=== PATIENT | male | born 1980 | race Hispanic/Latino ===

== ENCOUNTER 2021-11-20 18:40 | Inpatient (IN) | payer MEDICARE, SELFPAY ==
[2021-11-20] MEDS ORDERED: Senokot S 8.6-50 MG TAB PO PRN (20:06)
[2021-11-20] MEDS ORDERED: Ondansetron ODT 4 MG TAB PO PRN (20:06)
[2021-11-20] MEDS ORDERED: Dextrose 50% Abboject 50 ML SYRINGE SLOW IVP PRN (20:06)
[2021-11-20] MEDS ORDERED: Bisacodyl 5 MG TAB PO PRN (20:06)
[2021-11-20] MEDS ORDERED: Lorazepam 1 MG TAB PO PRN (20:29)
[2021-11-20 21:01] LABS: SARS-CoV-2 NAA Rapid Test Not Detected (NotDetected)
[2021-11-20] MEDS: Valproate Sodium 250 mg/5 ml UD Cup PO SCH (21:40)
[2021-11-20] MEDS: Famotidine 20 MG TAB PO SCH (21:40)
[2021-11-20] MEDS: CLORAZEPATE DIPOTASSIUM 7.5 MG PO SCH (21:41)
[2021-11-21 08:40] LABS: #Monocytes 0.5 thou/uL (0.11-0.59); #Neutrophils 3.6 thou/uL (1.40-6.50); %Basophils 0.8 % (0.0-1.0); %Eosinophils 0.2 % (0.0-10.0); %Lymphocytes 31.8 % (21.0-51.0); %Monocytes 8.7 % (0.0-10.0); %Neutrophils 58.5 % (42.0-75.0); Hemoglobin 10.3 g/dL (14.0-18.0); Mean Corpuscular HGB CONC 30.7 g/dL (32.0-36.0); Mean Corpuscular Hemoglobin 30.5 pg (27.0-31.0); Mean Corpuscular Volume 99.2 fL (78.0-98.0); Mean Platelet Volume 5.8 fL (7.4-10.4); Platelet Count 152 thou/uL (130-400); RBC Distribution Width 14.4 % (11.5-14.5); White Blood Cell (WBC) Count 6.2 thou/uL (4.8-10.8)
[2021-11-21 08:45] LABS: ALT (SGPT) 14 U/L (8-55); AST (SGOT) 14 U/L (5-34); Albumin 2.8 g/dL (3.5-5.0); Alkaline Phosphatase 107 U/L (40-110); Anion Gap 14 mmol/L (10-20); BUN (Urea Nitrogen) 27 mg/dL (8.9-20.6); Bilirubin, Total 0.3 mg/dL (0.2-1.2); Calc. Creatinine Clearance 80 mL/min (70-130); Carbon Dioxide 29 mmol/L (22-29); Chloride 105 mmol/L (98-107); Glucose 107 mg/dL (70-105); Potassium 4.2 mmol/L (3.5-5.1); Protein, Total 4.8 g/dL (6.0-8.3); Sodium 144 mmol/L (136-145)
[2021-11-21] MEDS ORDERED: Enoxaparin Sodium 40 MG/0.4 ML SYRINGE SC SCH (09:00)
[2021-11-21 13:29] LABS: #Basophils 0.1 thou/uL (0.0-0.2); #Monocytes 0.7 thou/uL (0.11-0.59); #Neutrophils 5.4 thou/uL (1.40-6.50); %Basophils 0.7 % (0.0-1.0); %Eosinophils 0.2 % (0.0-10.0); %Lymphocytes 32.7 % (21.0-51.0); %Monocytes 7.8 % (0.0-10.0); %Neutrophils 58.6 % (42.0-75.0); Hemoglobin 11.6 g/dL (14.0-18.0); Mean Corpuscular HGB CONC 29.8 g/dL (32.0-36.0); Mean Corpuscular Hemoglobin 30.2 pg (27.0-31.0); Mean Platelet Volume 6.3 fL (7.4-10.4); Platelet Count 196 thou/uL (130-400); RBC Distribution Width 14.9 % (11.5-14.5); Red Blood Cell (RBC) Count 3.84 mill/uL (4.70-6.10); White Blood Cell (WBC) Count 9.2 thou/uL (4.8-10.8)
[2021-11-21] MEDS ORDERED: Lorazepam 2 MG/ML VIAL SLOW IVP PRN (13:49)
[2021-11-21] MEDS: Famotidine 20 MG TAB PO SCH ×2 (14:16→21:05)
[2021-11-21] MEDS: Valproate Sodium 250 mg/5 ml UD Cup PO SCH ×3 (14:17→21:05)
[2021-11-21] MEDS: CLORAZEPATE DIPOTASSIUM 7.5 MG PO SCH ×3 (14:17→21:08)
[2021-11-21] MEDS: Glimepiride 2 MG TAB PO SCH (14:38)
[2021-11-21] MEDS: Cholecalciferol 1,000 UNITS (25 MCG) TAB PO SCH (14:39)
[2021-11-21] MEDS: Dextrose 5% in Water 1,000 ML IV SCH (15:00)
[2021-11-21] MEDS: Acetaminophen 500 MG TAB PO PRN (18:49)
[2021-11-22] MEDS: Dextrose 5% in Water 1,000 ML IV SCH (03:20)
[2021-11-22] MEDS: Glimepiride 2 MG TAB PO SCH (09:56)
[2021-11-22] MEDS: Famotidine 20 MG TAB PO SCH ×3 (10:07→20:48)
[2021-11-22] MEDS: Cholecalciferol 1,000 UNITS (25 MCG) TAB PO SCH ×2 (10:07→10:16)
[2021-11-22] MEDS: Acetaminophen 500 MG TAB PO PRN (10:13)
[2021-11-22] MEDS: Valproate Sodium 250 mg/5 ml UD Cup PO SCH ×3 (10:16→20:47)
[2021-11-22] MEDS: CLORAZEPATE DIPOTASSIUM 7.5 MG PO SCH ×3 (10:16→20:46)
[2021-11-23] MEDS: Glimepiride 2 MG TAB PO SCH (07:31)
[2021-11-23] MEDS: Cholecalciferol 1,000 UNITS (25 MCG) TAB PO SCH (08:56)
[2021-11-23] MEDS: Famotidine 20 MG TAB PO SCH ×2 (08:56→21:16)
[2021-11-23] MEDS: Valproate Sodium 250 mg/5 ml UD Cup PO SCH ×3 (08:57→21:13)
[2021-11-23] MEDS: CLORAZEPATE DIPOTASSIUM 7.5 MG PO SCH ×3 (09:04→21:09)
[2021-11-23] MEDS: Acetaminophen 500 MG TAB PO PRN (10:06)
[2021-11-24] MEDS: Glimepiride 2 MG TAB PO SCH (07:20)
[2021-11-24] MEDS: Acetaminophen 500 MG TAB PO PRN (08:40)
[2021-11-24] MEDS: Famotidine 20 MG TAB PO SCH ×2 (08:42→20:20)
[2021-11-24] MEDS: Cholecalciferol 1,000 UNITS (25 MCG) TAB PO SCH (08:42)
[2021-11-24] MEDS: Valproate Sodium 250 mg/5 ml UD Cup PO SCH ×3 (08:44→20:19)
[2021-11-24] MEDS: CLORAZEPATE DIPOTASSIUM 7.5 MG PO SCH ×3 (08:45→20:20)
[2021-11-24 20:02] VITALS: BMI 23.8
[2021-11-25] MEDS: Acetaminophen 500 MG TAB PO PRN (02:16)
[2021-11-25] MEDS: Glimepiride 2 MG TAB PO SCH (07:54)
[2021-11-25] MEDS: Cholecalciferol 1,000 UNITS (25 MCG) TAB PO SCH (07:56)
[2021-11-25] MEDS: Famotidine 20 MG TAB PO SCH ×2 (07:56→20:52)
[2021-11-25] MEDS: CLORAZEPATE DIPOTASSIUM 7.5 MG PO SCH ×3 (08:03→20:53)
[2021-11-25] MEDS: Valproate Sodium 250 mg/5 ml UD Cup PO SCH ×3 (09:02→20:52)
[2021-11-25] MEDS ORDERED: Fluticasone Propionate Nasal Spray 16 gm Bottle NASAL SCH (09:30)
[2021-11-26] MEDS: Glimepiride 2 MG TAB PO SCH (08:12)
[2021-11-26] MEDS: Famotidine 20 MG TAB PO SCH ×2 (08:15→20:29)
[2021-11-26] MEDS: Fluticasone Propionate Nasal Spray 16 gm Bottle NASAL SCH (08:24)
[2021-11-26] MEDS: CLORAZEPATE DIPOTASSIUM 7.5 MG PO SCH ×3 (08:24→20:28)
[2021-11-26] MEDS: Acetaminophen 500 MG TAB PO PRN (08:31)
[2021-11-26] MEDS: Valproate Sodium 250 mg/5 ml UD Cup PO SCH ×4 (09:30→20:30)
[2021-11-27 06:20] LABS: Anion Gap 13 mmol/L (10-20); BUN (Urea Nitrogen) 24 mg/dL (8.9-20.6); Calc. Creatinine Clearance 68 mL/min (70-130); Calcium 8.2 mg/dL (7.8-10.44); Carbon Dioxide 29 mmol/L (22-29); Chloride 106 mmol/L (98-107); Glucose 116 mg/dL (70-105); Sodium 144 mmol/L (136-145)
[2021-11-27 06:28] LABS: #Basophils 0.1 thou/uL (0.0-0.2); #Lymphocytes 2.2 thou/uL (1.20-3.40); #Monocytes 0.3 thou/uL (0.11-0.59); #Neutrophils 4.8 thou/uL (1.40-6.50); %Basophils 0.6 % (0.0-1.0); %Eosinophils 0.3 % (0.0-10.0); %Lymphocytes 29.1 % (21.0-51.0); %Monocytes 4.2 % (0.0-10.0); %Neutrophils 65.8 % (42.0-75.0); Hemoglobin 9.9 g/dL (14.0-18.0); Mean Corpuscular Hemoglobin 30.3 pg (27.0-31.0); Mean Corpuscular Volume 97.7 fL (78.0-98.0); Mean Platelet Volume 6.7 fL (7.4-10.4); Platelet Count 66 thou/uL (130-400); RBC Distribution Width 13.8 % (11.5-14.5); Red Blood Cell (RBC) Count 3.26 mill/uL (4.70-6.10); White Blood Cell (WBC) Count 7.4 thou/uL (4.8-10.8)
[2021-11-27] MEDS: Acetaminophen 500 MG TAB PO PRN (07:18)
[2021-11-27] MEDS: Glimepiride 2 MG TAB PO SCH (07:19)
[2021-11-27] MEDS: Fluticasone Propionate Nasal Spray 16 gm Bottle NASAL SCH (09:21)
[2021-11-27] MEDS: Famotidine 20 MG TAB PO SCH ×2 (09:21→21:15)
[2021-11-27] MEDS: Valproate Sodium 250 mg/5 ml UD Cup PO SCH ×3 (09:22→21:14)
[2021-11-27] MEDS: CLORAZEPATE DIPOTASSIUM 7.5 MG PO SCH ×3 (09:22→21:16)
[2021-11-27] MEDS: Cholecalciferol 1,000 UNITS (25 MCG) TAB PO SCH (09:22)
[2021-11-28 06:28] LABS: #Basophils 0.1 thou/uL (0.0-0.2); #Lymphocytes 1.9 thou/uL (1.20-3.40); #Monocytes 0.2 thou/uL (0.11-0.59); #Neutrophils 1.9 thou/uL (1.40-6.50); %Basophils 1.5 % (0.0-1.0); %Eosinophils 0.4 % (0.0-10.0); %Lymphocytes 46.5 % (21.0-51.0); %Monocytes 4.3 % (0.0-10.0); %Neutrophils 47.3 % (42.0-75.0); Hemoglobin 8.5 g/dL (14.0-18.0); Mean Corpuscular HGB CONC 30.6 g/dL (32.0-36.0); Mean Corpuscular Hemoglobin 30.2 pg (27.0-31.0); Mean Corpuscular Volume 98.8 fL (78.0-98.0); Mean Platelet Volume 6.4 fL (7.4-10.4); Platelet Count 59 thou/uL (130-400); Red Blood Cell (RBC) Count 2.82 mill/uL (4.70-6.10)
[2021-11-28] MEDS: Acetaminophen 500 MG TAB PO PRN (06:43)
[2021-11-28] MEDS: Glimepiride 2 MG TAB PO SCH (09:59)
[2021-11-28] MEDS: Famotidine 20 MG TAB PO SCH ×2 (09:59→20:27)
[2021-11-28] MEDS: Cholecalciferol 1,000 UNITS (25 MCG) TAB PO SCH (10:00)
[2021-11-28] MEDS: Fluticasone Propionate Nasal Spray 16 gm Bottle NASAL SCH (10:01)
[2021-11-28] MEDS: Valproate Sodium 250 mg/5 ml UD Cup PO SCH ×3 (10:01→20:27)
[2021-11-28] MEDS: CLORAZEPATE DIPOTASSIUM 7.5 MG PO SCH ×3 (10:02→20:27)
[2021-11-29] MEDS: Acetaminophen 500 MG TAB PO PRN (01:51)
[2021-11-29 06:19] LABS: #Monocytes 0.2 thou/uL (0.11-0.59); #Neutrophils 1.3 thou/uL (1.40-6.50); %Basophils 1.3 % (0.0-1.0); %Eosinophils 0.2 % (0.0-10.0); %Lymphocytes 56.4 % (21.0-51.0); %Monocytes 4.7 % (0.0-10.0); %Neutrophils 37.4 % (42.0-75.0); Hemoglobin 9.1 g/dL (14.0-18.0); Mean Corpuscular HGB CONC 31.2 g/dL (32.0-36.0); Mean Corpuscular Hemoglobin 30.5 pg (27.0-31.0); Mean Corpuscular Volume 97.6 fL (78.0-98.0); Mean Platelet Volume 6.2 fL (7.4-10.4); Platelet Count 61 thou/uL (130-400); RBC Distribution Width 13.9 % (11.5-14.5); Red Blood Cell (RBC) Count 2.98 mill/uL (4.70-6.10); White Blood Cell (WBC) Count 3.5 thou/uL (4.8-10.8)
[2021-11-29] MEDS: Valproate Sodium 250 mg/5 ml UD Cup PO SCH ×3 (08:22→21:19)
[2021-11-29] MEDS: Famotidine 20 MG TAB PO SCH ×2 (08:22→21:19)
[2021-11-29] MEDS: Fluticasone Propionate Nasal Spray 16 gm Bottle NASAL SCH (08:22)
[2021-11-29] MEDS: Cholecalciferol 1,000 UNITS (25 MCG) TAB PO SCH (08:23)
[2021-11-29] MEDS: Glimepiride 2 MG TAB PO SCH (08:23)
[2021-11-29] MEDS: CLORAZEPATE DIPOTASSIUM 7.5 MG PO SCH ×3 (08:23→21:24)
[2021-11-30 00:03] VITALS: TEMP 98.2
[2021-11-30 06:18] LABS: Anion Gap 12 mmol/L (10-20); BUN (Urea Nitrogen) 23 mg/dL (8.9-20.6); Calc. Creatinine Clearance 82 mL/min (70-130); Calcium 7.7 mg/dL (7.8-10.44); Carbon Dioxide 28 mmol/L (22-29); Chloride 108 mmol/L (98-107); Estimated GFR 96; Glucose 96 mg/dL (70-105); Sodium 144 mmol/L (136-145)
[2021-11-30 06:21] LABS: #Lymphocytes 1.8 thou/uL (1.20-3.40); #Monocytes 0.3 thou/uL (0.11-0.59); #Neutrophils 1.9 thou/uL (1.40-6.50); %Basophils 1.1 % (0.0-1.0); %Eosinophils 0.1 % (0.0-10.0); %Lymphocytes 45.3 % (21.0-51.0); %Monocytes 6.9 % (0.0-10.0); %Neutrophils 46.6 % (42.0-75.0); Hemoglobin 9.1 g/dL (14.0-18.0); Mean Corpuscular HGB CONC 30.4 g/dL (32.0-36.0); Mean Corpuscular Hemoglobin 29.6 pg (27.0-31.0); Mean Corpuscular Volume 97.5 fL (78.0-98.0); Platelet Count 71 thou/uL (130-400); Red Blood Cell (RBC) Count 3.07 mill/uL (4.70-6.10)
[2021-11-30] MEDS: Glimepiride 2 MG TAB PO SCH (07:38)
[2021-11-30] MEDS: Famotidine 20 MG TAB PO SCH (09:50)
[2021-11-30] MEDS: Acetaminophen 500 MG TAB PO PRN (09:52)
[2021-11-30] MEDS: Cholecalciferol 1,000 UNITS (25 MCG) TAB PO SCH (09:52)
[2021-11-30] MEDS: Valproate Sodium 250 mg/5 ml UD Cup PO SCH ×2 (09:53→15:38)
[2021-11-30] MEDS: Fluticasone Propionate Nasal Spray 16 gm Bottle NASAL SCH (09:53)
[2021-11-30] MEDS: CLORAZEPATE DIPOTASSIUM 7.5 MG PO SCH ×2 (09:54→15:33)
[2021-11-30 12:07] VITALS: BP 120/84
[2021-11-30] MEDS ORDERED: Lorazepam 0.5 MG TAB PO PRN (15:45)
== END 2021-11-30 18:50 | DRG 947 ==
LOC: NAV ACUTE 18:40
PROVIDERS: ADMIT Family Medicine; ATTEND Family Medicine
DX: R53.81 Other malaise (principal); D61.811 Other drug-induced pancytopenia; I69.354 Hemiplegia and hemiparesis following cerebral infarction affecting left non-dominant side; E11.9 Type 2 diabetes mellitus without complications; G40.909 Epilepsy, unspecified, not intractable, without status epilepticus; Z20.822 Contact with and (suspected) exposure to COVID-19; R13.10 Dysphagia, unspecified; T50.905A Adverse effect of unspecified drugs, medicaments and biological substances, initial encounter; Z88.5 Allergy status to narcotic agent; Z88.8 Allergy status to other drugs, medicaments and biological substances
CPT/HCPCS: 36415; 36416; 70450; 80048; 80053; 80164; 84146; 85025; J1650; J7070; Q0162; U0002; U0003; U0005